=== PATIENT | male | born 1950 | race Caucasian/White ===

== ENCOUNTER 2018-03-19 13:31 | Observation (INO) ==
[2018-03-19] MEDS ORDERED: *HR* Propofol 200 MG/20 ML VIAL IVP ONE (13:35)
[2018-03-19] MEDS ORDERED: *HR* FentaNYL (PF) 100 MCG/2 ML VIAL ONE (13:35)
[2018-03-19] MEDS ORDERED: Lidocaine -MPF 4% 5 ML AMPUL ONE (13:36)
[2018-03-19] MEDS ORDERED: Lidocaine -MPF 2% 2 ML VIAL ONE (13:36)
[2018-03-19] MEDS ORDERED: Dexamethasone 4 MG/ML VIAL ONE (13:36)
[2018-03-19] MEDS ORDERED: Ondansetron 4 MG/2 ML VIAL ONE (13:36)
[2018-03-19] MEDS ORDERED: *HR* Rocuronium Bromide 50 MG/5 ML VIAL ONE (13:36)
[2018-03-19] MEDS ORDERED: *HR* Succinylcholine 200 MG/10 ML VIAL IVP ONE (13:45)
[2018-03-19] MEDS ORDERED: Isovue-300 50 ML VIAL IVP ONE (14:01)
[2018-03-19] MEDS ORDERED: Clindamycin 900 MG/50 ML 900 MG/50 ML IV.SOLN IVPB ONE (14:05)
[2018-03-19] MEDS ORDERED: Ringers Solution, Lactated 1,000 ML IVC SCH (14:15)
--- NOTE | 2018-03-19 14:37 | Event Note ---
Date of Encounter: 03/19/18 Time of Encounter: 14:32 H/P HPI: patient seen in office in January for symptomatic cholelithiasis. He has had no further episodes since that time. 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 Risks and benefits previously discussed with patient and he wishes to proceed npo
--- NOTE | 2018-03-19 14:47 | Anesthesia Evaluation PreOp ---
Date of Encounter: 03/19/18 Time of Encounter: 14:45 - Past History Planned Operation: Lap cholecystectomy Cardiac History: HTN, Hyperlipidemia, Cardiac Surgery (CABG 1993, 2010) Pulmonary History: COPD (Mild) WRISTER History: Denies Any Significant HX Other Medical History: Diabetes Type II Anesthesia History: No Prior Anesthetic Complications, Past Anesthesia Alcohol Use: occasionally Drug use: none Medications and Allergies Aspirin 81 mg PO DAILY 03/19/18 [History] Carvedilol [Carvedilol] 12.5 mg PO BID 03/19/18 [History] Furosemide [Lasix] 20 mg PO DAILY PRN 03/19/18 [History] Insulin Aspart Prot/Insuln Asp [Novolog Mix 70-30 Flexpen Syrn] 170 unit SQ BID 03/19/18 [History] Losartan Potassium [Cozaar] 100 mg PO DAILY 03/19/18 [History] Metformin HCl [Glucophage] 1,000 mg PO QPM 03/19/18 [History] Pravastatin Sodium [Pravachol] 40 mg PO DAILY 03/19/18 [History] 3 Allergy/AdvReac Type Severity Reaction Status Date / Time Penicillins Allergy Itching Verified 03/19/18 13:53 protamine AdvReac Anaphylaxis Verified 03/19/18 13:53 - Meds/Allergy Pre-op Review Medications Reviewed: Yes Allergies Reviewed: Yes Beta Blockers on Current Med List: Yes Anesthesia Results - Imaging Additional studies: 01/2018: Stress test: Gated EF 58% No ischemis. Anesthesia Exam O2 Sat Height 1.83 m Height 1.83 m Height 1.83 m Weight 134.263 kg Weight 134.263 kg Weight 134.263 kg O2 Sat by Pulse Oximetry 97 Vital Signs/O2 Sat/Glucose, Most Recent Temp Pulse Resp BP Pulse Ox 98.1 F 81 18 131/77 97 03/19/18 13:47 03/19/18 13:47 03/19/18 13:47 03/19/18 13:47 03/19/18 13:47 Blood Glucose* 143 NPO (# of Hours): 8 - HEENT Mallampati: II Teeth: Missing Denture Type: Upper: Complete - Cardiac Rhythm: Regular - Pulmonary Breath Sounds: bilateral Clear Anesthesia Assess/Plan ASA Score: 3 Modified Anna Scale for Level of Consciousness: Cooperative, oriented, and tranquil Anesthetic Plan: General Autologous Blood: Yes Monitoring Plan: Standard Monitors Recovery Plan: PACU Anes Supervising Prov Stmt: Patient informed and consented. Risks, benefits, and alternatives discussed. Patient wishes to proceed.
[2018-03-19] MEDS ORDERED: Acetaminophen IV 1,000 MG/100 ML INFUS..BTL ONE (14:49)
[2018-03-19] MEDS ORDERED: EPHEDrine 50 MG/ML VIAL ONE (15:09)
[2018-03-19] MEDS ORDERED: *HR* OxyCODONE Immed Rel 5 MG TABLET PO PRN (15:51)
[2018-03-19] MEDS ORDERED: *HR* HYDROmorphone 2 MG TABLET PO PRN (15:51)
[2018-03-19] MEDS ORDERED: Ondansetron 4 MG/2 ML VIAL IVP PRN (15:51)
[2018-03-19] MEDS ORDERED: MORPHINE SUL Oral CONC 10 MG/0.5 ML ORAL.SYG SL PRN (15:51)
[2018-03-19] MEDS ORDERED: Ketorolac 30 MG/ML VIAL ONE (15:55)
[2018-03-19] MEDS ORDERED: Neostigmine Methylsulfate 3 MG/3 ML SYRINGE ONE (15:57)
--- NOTE | 2018-03-19 16:15 | Operative Note ---
Date of procedure: 03/19/18 Pre-op diagnosis: symptomatic cholelithiasis Post-op diagnosis: same Procedure: Laparoscopic cholecystectomy Complications: none immediate Anesthesia: MARIANELA, local Surgeon: Ivy Rascon Was there an assistant business manager present: Yes Manager Consumer Insights: Jana Guillermo Estimated blood loss (cc): 5 Specimen: gallbladder Condition: stable Disposition: PACU Procedure in Detail: The patient was brought into the operating suite and placed supine on the operating table. Sign-in was performed and everyone was in agreement. Anesthesia was induced and patient was endotracheally intubated by anesthesia without incident and they also placed an OG tube. The abdomen was prepped and draped in the usual sterile fashion. A timeout was performed again everyone was in agreement. A supraumbilical incision was made through the skin into the subcutaneous tissue with an 11 blade. Towel clamps were placed on either side of the umbilicus for retraction. S retractors were used to dissect down to the anterior abdominal wall linea alba fascia. A Veress needle was placed through this incision and a water drop test confirmed placement and the abdomen was insufflated. The abdomen was entered with a 5 mm 0 degree laparoscope on a 5 mm X-donny trocar. The area and entry was visualized was no bleeding and no apparent bowel injury. A 5 mm subxiphoid port was placed under direct visualization after first incising the skin with an 11 blade. A right upper quadrant subcostal position midclavicular line 5 mm port was placed under direct visualization after first incising skin with 11 blade. The laparoscope was placed in this and we exchanged the supraumbilical port for a 12 mm port under direct visualization. The last 5 mm port was placed in the right upper quadrant subcostal position anterior axillary line after first incising the skin with an 11 blade. The patient was placed in steep reverse Trendelenburg left side down position. The dome of the gallbladder was grasped and retracted cephalad. The infundibulum was grasped and retracted laterally. Using the [place] we dissected out the cystic duct and cystic artery. THe cystic artery appeared very short, less than 1 cm. The cystic artery was doubly clipped proximally, once distally and transected with curved scissors. While attempting to place the first hemoclip on the cystic duct it became dislodged off the clip whizzer and during attempted removal from behind the cystic duct there was bile staining seen. Three 5 mm hemoclips were placed distally on the cystic duct one proximally and it was transected with curved scissors. No further bile staining from the area of the common or cystic duct was seen. The gallbladder was removed off the cystic plate with the Bovie. Any bleeding points were stopped with the Bovie. The gallbladder was placed in a laparoscopic Endo Catch bag and removed via the supraumbilical incision site. The inferior edge of the liver was bluntly retracted cephalad and the cystic plate was copiously irrigated with sterile saline. There was no bleeding or apparent bile leak from the cystic plate and the clips on the cystic artery and duct were intact. All irrigation was suctioned free from the abdomen. A 19mm Trent drain was placed through the right lateral port site and placed into the gallbladder fossa. The drain was secured to the skin with a 2-0 silk stitch. All insufflation was suctioned free from the abdomen and the ports removed. The abdominal wall at the supraumbilical incision site was closed with a 0 Vicryl [id number] stitch. 30 mL of 0.5% Marcaine was injected subcutaneously at the 4 port sites. The skin at the three 5 mm port sites were closed with 4-0 Monocryl interrupted subcuticular stitches. The skin at the supraumbilical incision site was closed with a 4-0 Monocryl running subcuticular stitch. Steri -Strips were applied to all wounds. The patient was awoken in the operating suite having tolerated the procedure well and were taken to PACU in stable condition after all lap and ensuring counts were correct at the end of the case.
--- NOTE | 2018-03-19 16:19 | Discharge Summary ---
Outpatient Proc Discharge Plan - Plan Instructions: Laparoscopic Cholecystectomy (DC), Noah-Gonsalves Drain Care (DC) Additional Instructions: No lifting more than 20 pounds for 2 weeks. Okay to take a shower in 24 hours. No tub baths or pools for 1 week. Okay to ride in the car wearing a seatbelt and climb steps. No driving until off narcotics for 24 hours and able to react safely Remove Steri-Strips in 1 week Do not take pain medicine/narcotics on an empty stomach it will likely cause nausea and possibly vomiting. If pain medication is too strong okay to break in half please get lft's drawn in 5 days Prescriptions: OxyCODONE/APAP 5/325 [Percocet 5/325 MG] 1 each PO Q4HR PRN 5 Days #25 tablet PRN Reason: Pain Docusate [Colace] 100 mg PO BID #30 capsule Home Medications: Aspirin 81 mg PO DAILY 03/19/18 [History] Carvedilol 12.5 mg PO BID 03/19/18 [History] Docusate [Colace] 100 mg PO BID #30 capsule 03/19/18 [Rx] Furosemide [Lasix] 20 mg PO DAILY PRN 03/19/18 [History] Insulin Aspart Prot/Insuln Asp [Novolog Mix 70-30 Flexpen Syrn] 170 unit SQ BID 03/19/18 [History] Losartan Potassium [Cozaar] 100 mg PO DAILY 03/19/18 [History] Metformin HCl [Glucophage] 1,000 mg PO QPM 03/19/18 [History] OxyCODONE/APAP 5/325 [Percocet 5/325 MG] 1 each PO Q4HR PRN 5 Days #25 tablet [Rx] Pravastatin Sodium [Pravachol] 40 mg PO DAILY 03/19/18 [History]
[2018-03-19] MEDS ORDERED: *HR* OxyCODONE/APAP 5/325 TABLET PO ONE (16:20)
--- NOTE | 2018-03-19 21:53 | Anesthesia Evaluation Post Op ---
Date of Encounter: 03/19/18 Time of Encounter: 21:52 - Vital Signs Vital Signs: Vital Signs/O2 Sat, Most Current Temp Pulse Resp BP Pulse Ox 97.6 F 80 20 158/87 96 03/19/18 16:50 03/19/18 20:20 03/19/18 20:20 03/19/18 20:20 03/19/18 20:20 - Lungs Lungs: Clear Ascult./Percussion - Airway Airway: Non-obstructed - Cardiovascular Regular Rate - Mental Status Mental Status: Alert & Oriented, Answers Appropriately - Pain Pain Scale: 0 Pain Scale used: Numeric (1 - 10) - Nausea Vomiting Nausea Vomiting: Not Present - Hydration Hydration: Tolerates oral liquids, Has not voided - Discharge PostOp Status: Transfer Patient to floor (Patient to be admitted by Dr. Rascon for urinary retention)
[2018-03-19] MEDS ORDERED: 0.9 % Sodium Chloride 1,000 ML IVC SCH (22:45)
[2018-03-19] MEDS ORDERED: *HR* OxyCODONE/APAP 5/325 TABLET PO PRN (22:48)
[2018-03-20 06:41] VITALS: BP 110/65
== END 2018-03-20 08:50 | disposition home or self-care (01) ==
LOC: SAMDAY 13:31 → 3ANU 13:31
PROVIDERS: ADMIT Surgery; ATTEND Surgery

== ENCOUNTER 2018-05-24 15:21 | Observation (INO) ==
--- NOTE | 2018-05-24 15:39 | Emergency Department Note ---
Disposition Clinical Impression: DVT (deep venous thrombosis) Qualifiers: DVT location: lower extremity Affected thrombotic vein of extremity: femoral Chronicity: acute Laterality: right Qualified Code(s): I82.411 - Acute embolism and thrombosis of right femoral vein Disposition: Admitted As Inpatient Condition: Good General Adult HPI - General Chief complaint: ED Extremity Problem,Nontraumatic Stated complaint: Right foot injury Time Seen by Provider: 05/24/18 15:26 Source: patient, family Mode of arrival: ambulatory Limitations: no limitations Nursing Notes Reviewed: Yes Vital Signs Reviewed: Yes - History of Present Illness HPI Narrative: Patient presents today for evaluation of right lower extremity swelling and pain. Patient states symptoms started several weeks ago when he fell off a chair. Patient was using his stool. Patient came down on his heel. The patient states that he has had intermittent pain and numbness occasionally felt something "crunch". The patient states pain worse with walking. Swelling has now gone from the ankle to the upper calf. Patient describes tightness. Denies fevers or chills. Denies paresthesias. Cap refill and sensation intact. Pain Scale: 3 - Related Data Home Medications Medication Instructions Recorded Confirmed Aspirin 81 mg PO DAILY 03/19/18 05/24/18 Carvedilol 12.5 mg PO BID 03/19/18 05/24/18 Furosemide [Lasix] 20 mg PO DAILY PRN 03/19/18 05/24/18 Insulin Aspart Prot/Insuln Asp 150 - 180 unit SQ BID 03/19/18 05/24/18 [Novolog Mix 70-30 Flexpen Syrn] Losartan Potassium [Cozaar] 100 mg PO DAILY 03/19/18 05/24/18 Metformin HCl [Glucophage] 1,000 mg PO QPM 03/19/18 05/24/18 Pravastatin Sodium [Pravachol] 40 mg PO DAILY 03/19/18 05/24/18 Allergies Allergy/AdvReac Type Severity Reaction Status Date / Time Penicillins Allergy Itching Verified 05/24/18 17:16 protamine AdvReac Anaphylaxis Verified 05/24/18 17:16 Review of Systems: Review of systems positive: Pain to the right heel ankle and calf. Positive swelling to the right lower extremity from the foot to the upper calf. Review systems negative: Constitutional: Fever, chills, weight loss. Cardiovascular: Chest pain or shortness of breath. Respiratory: Shortness of breath. Abdomen: Abdominal pain. Past Medical History - Past Medical History Medical history: Reports: diabetes, hyperlipidemia, hypertension, myocardial infarction Surgical history: Reports: angioplasty/stent, coronary bypass (CABG) Psychiatric history: Reports: no psych history - Social History Smoking Status: Former smoker Smokeless Tobacco Status: No Alcohol use: Reports: occasionally Drug use: Reports: none Physical Exam General appearance: NAD, conversant Eyes: anicteric sclerae, moist conjunctivae; no lid-lag; PERRL HENT: Atraumatic; oropharynx clear with moist mucous membranes Neck: Normal appearance; Trachea midline Chest: Symmetrical chest rise; No respiratory distress Extremities: Right lower extremity with swelling to the foot ankle and lower leg up to the midcalf. Nonpitting edema. Mild ecchymosis around the medial ankle. Sensation and cap refill intact. Dorsalis pedis +2 bilaterally. Right leg with tenderness to palpation over the medial aspect of the ankle as well as the calcaneus. Left leg with no swelling or pain. Skin: Normal temperature, turgor and texture; no rash, ulcers or subcutaneous nodules Psych: Appropriate mood and affect Neuro: Awake and alert Course Course Narrative: 05/24/18 17:00 - Vascular Preliminary by [facility] Num: [id number] : 1950 Patient Age: 68 VENOUS DOPPLER PRELIMINARY REPORT POSITIVE DVT RIGHT LOWER EXTREMITY +FEMORAL VEIN(MID & DIST THIGH) +POP VEIN +PTV VEIN(PROX & MID CALF) +BRENT VEIN(PROX & MID CALF) Initialized on 05/24/18 17:00 - END OF NOTE - Reevaluation(s) Reevaluation #1: DVT positive. Patient with multiple comorbidities. Allergy to protamine. Will check basic labs and likely start on Lovenox. - Consultations Consultation #1: Discussed with hospitalist. Patient accepted for admission. Vital Signs Temperature 97.9 F 05/24/18 15:22 Pulse Rate 80 05/24/18 15:22 Respiratory Rate 20 05/24/18 15:22 Blood Pressure 143/73 05/24/18 15:22 O2 Sat by Pulse Oximetry 95 05/24/18 15:22 Temperature 97.9 F 07/05/18 16:57 Pulse Rate 99 05/24/18 17:35 Respiratory Rate 18 05/24/18 18:54 Blood Pressure 168/76 05/24/18 18:54 O2 Sat by Pulse Oximetry 96 05/24/18 17:35 Oxygen Delivery Oxygen Delivery Room Air Medical Decision Making - Lab Data Result diagrams: 05/24/18 17:03 05/24/18 17:03 Lab Results 05/24/18 05/24/18 05/24/18 Range/Units 17:03 17:03 17:03 WBC 8.2 (4.3-11.1) K/mcL RBC 5.04 (4.19-5.50) M/mcL Hgb 14.1 (12.9-16.9) g/dL Hct 42.6 (37.5-50.1) % MCV 84.5 (83.0-100.0) fL MCH 28.0 (28.0-33.3) pg MCHC 33.1 (31.6-35.5) g/dL RDW 14.1 (11.5-14.5) % Plt Count 105 L (140-400) K/mcL MPV 11.0 (9.4-12.4) fL Immature Gran % 0.2 (0-4) % Seg Neutrophils % 62.8 % Lymphocytes % 25.2 % Monocytes % 9.4 % Eosinophils % 2.2 % Basophils % 0.2 % Neutrophils # 5.1 (1.6-8.9) K/mcL Lymphocytes # 2.1 (0.6-4.6) K/mcL Monocytes # 0.8 (0.0-1.3) K/mcL Eosinophils # 0.2 (0.0-0.6) K/mcL Basophils # 0.0 (0.0-0.2) K/mcL PT 12.1 (9.4-12.1) Seconds INR 1.1 APTT 29.6 (26.0-36.0) Seconds Sodium 139 (136-145) mEq/L Potassium 4.3 (3.5-5.1) mEq/L Chloride 105 (98-107) mEq/L Carbon Dioxide 28 (23-29) mEq/L BUN 10 (8-23) mg/dL Creatinine 0.91 (0.70-1.30) mg/dL Est GFR ( Amer) > 60 (> 60) Est GFR (Non-Af Amer) > 60 (> 60) BUN/Creatinine Ratio 11 (6-26) Glucose 77 (70-105) mg/dL Calculated Osmolality 286 (280-300) Calcium 9.5 (8.6-10.3) mg/dL
[2018-05-24 17:21] LABS: Basophils % 0.2 %; Eosinophils # 0.2 K/mcL (0.0-0.6); Eosinophils % 2.2 %; Hematocrit 42.6 % (37.5-50.1); Hemoglobin 14.1 g/dL (12.9-16.9); Immature Granulocytes % 0.2 % (0-4); Lymphocytes # 2.1 K/mcL (0.6-4.6); Lymphocytes % 25.2 %; Mean Corpuscular HGB Conc 33.1 g/dL (31.6-35.5); Mean Corpuscular Volume 84.5 fL (83.0-100.0); Monocytes # 0.8 K/mcL (0.0-1.3); Monocytes % 9.4 %; Neutrophils # 5.1 K/mcL (1.6-8.9); Platelet Count 105 K/mcL (140-400); Red Blood Count 5.04 M/mcL (4.19-5.50); Red Cell Distribution Width 14.1 % (11.5-14.5); Segmented Neutrophils % 62.8 %
[2018-05-24 17:28] LABS: INR 1.1; Prothrombin Time 12.1 Seconds (9.4-12.1)
[2018-05-24] MEDS ORDERED: Norepinephrine 4 MG in D5% in Water 250 ML IVC SCH (17:30)
[2018-05-24 17:31] LABS: Activated Partial Thrombo Time 29.6 Seconds (26.0-36.0)
[2018-05-24 17:49] LABS: BUN/Creatinine Ratio 11 (6-26); Blood Urea Nitrogen 10 mg/dL (8-23); Calcium 9.5 mg/dL (8.6-10.3); Carbon Dioxide 28 mEq/L (23-29); Chloride 105 mEq/L (98-107); Glucose 77 mg/dL (70-105); Osmolality,Calculated 286 (280-300); Potassium 4.3 mEq/L (3.5-5.1); Sodium 139 mEq/L (136-145); eGFR For African Americans > 60 (> 60); eGFR For Non-African Americans > 60 (> 60)
[2018-05-24] MEDS ORDERED: *HR* Enoxaparin 150 MG/ML SYRINGE SQ STA (17:55)
--- NOTE | 2018-05-24 20:03 | Internal Med History&Physical ---
Date of Encounter: 05/24/18 Time of Encounter: 20:03 Internal Medicine - H&P: HPI Chief complaint: Right leg pain History of present illness: Mr. Wilkins is a 68 year old male with right lower extremity swelling and pain. Patient states symptoms started several weeks ago when he fell off a chair. Doppler U/S was positive for DVT and the patient was admitted for further evaluation. Past Med Surg Social Fam HX - Past Medical History Medical history: diabetes, hyperlipidemia, hypertension, myocardial infarction Additional medical history: CABGX2. [place] X2. HEART CATH. CVD. HTN. HIGH CHOLESTEROL. CHEST PAIN Psychiatric history: no psych history - Past Surgical History Surgical History: angioplasty/stent, coronary bypass (CABG) - Social History Smoking Status: Former smoker Smokeless Tobacco Status: No Alcohol use: occasionally Drug use: none - Family History Father Adopted: [place]: Kamila Wilkins Age: 95 Age at : 95 Cause of : Kidney failure Mother Adopted: [place]: Sruthi Wilkins Age: 52 Age at : 52 Cause of : CHF Hx Family Cardiac Disorders: Yes Hx Family Musculoskeletal Disorders: Yes (Raynauds) Internal Medicine - H&P: Meds Aspirin 81 mg PO DAILY 03/19/18 [History] Carvedilol 12.5 mg PO BID 03/19/18 [History] Furosemide [Lasix] 20 mg PO DAILY PRN 03/19/18 [History] Insulin Aspart Prot/Insuln Asp [Novolog Mix 70-30 Flexpen Syrn] 150 - 180 unit SQ BID 03/19/18 [History] Losartan Potassium [Cozaar] 100 mg PO DAILY 03/19/18 [History] Metformin HCl [Glucophage] 1,000 mg PO QPM 03/19/18 [History] Pravastatin Sodium [Pravachol] 40 mg PO DAILY 03/19/18 [History] 3 Allergy/AdvReac Type Severity Reaction Status Date / Time Penicillins Allergy Itching Verified 05/24/18 17:16 protamine AdvReac Anaphylaxis Verified 05/24/18 17:16 All Systems PM: A 10-system review of systems was performed and is negative for pertinent findings except as documented above in the HPI. - Constitutional Constitutional: no chills, no fever(s), no night sweats - Cardiovascular Cardiovascular ROS IM: no chest pain, no diaphoresis, no dyspnea, no lightheadedness, no palpitations, no syncope - Respiratory Respiratory: no cough, no dyspnea, no wheezing, no excessive phlegm production - Gastrointestinal Gastrointestinal: no abdominal pain, no diarrhea, no hematemesis, no hematochezia, no melena, no nausea, no vomiting - Neurological Neurological ROS: no confusion, no convulsions, no focal weakness, no numbness, no tingling, no tremor(s) - Constitutional Vitals: Temp Pulse Resp BP Pulse Ox 97.9 F 99 18 168/76 96 05/24/18 16:57 05/24/18 17:35 05/24/18 18:54 05/24/18 18:54 05/24/18 17:35 Internal Med - H&P Results - Labs CBC & Chem 7: 05/25/18 01:20 05/25/18 01:20 - Assessment and plan (1) DVT (deep venous thrombosis) Current Visit: Yes Status: Acute Assessment and plan: ASSESSMENT: -Leg pain due to DVT PLAN: - Anticoagulation with Lovenox. Qualifiers: DVT location: lower extremity Affected thrombotic vein of extremity: femoral Chronicity: acute Laterality: right Qualified Code(s): I82.411 - Acute embolism and thrombosis of right femoral vein (2) Hypertension Current Visit: Yes Status: Acute (3) Diabetes mellitus Current Visit: Yes Status: Acute (4) Hyperlipidemia Current Visit: Yes Status: Acute - Time Spent With Patient Total time spent is greater than 50% in coordination of care (as documented) at patient's floor/unit and/or counseling patient:
[2018-05-24] MEDS ORDERED: *HR* HYDROcodone/Acet 5/325 mg TABLET PO PRN (20:38)
[2018-05-24] MEDS ORDERED: Naloxone 0.4 MG/ML INJ IVP PRN ×2 (20:38→20:48)
[2018-05-24] MEDS ORDERED: Acetaminophen 325 MG TABLET PO PRN (20:38)
[2018-05-24] MEDS: Insulin NPH/REG 70/30 100 UNIT/ML (x5UNIT) SQ SCH (22:00)
[2018-05-24] MEDS: *HR* Metformin 500 MG TABLET PO SCH (22:06)
[2018-05-25 01:47] LABS: Hematocrit 41.2 % (37.5-50.1); Immature Platelets 7.8 % (1.1-6.1); Mean Corpuscular Hemoglobin 28.9 pg (28.0-33.3); Mean Corpuscular Volume 85.1 fL (83.0-100.0); Mean Platelet Volume 11.7 fL (9.4-12.4); Red Blood Count 4.84 M/mcL (4.19-5.50); Red Cell Distribution Width 13.7 % (11.5-14.5)
[2018-05-25 01:51] LABS: INR 1.1; Prothrombin Time 12.8 Seconds (9.4-12.1)
[2018-05-25 01:54] LABS: Activated Partial Thrombo Time 36.3 Seconds (26.0-36.0)
[2018-05-25] MEDS ORDERED: D5% in Water 1,000 ML IVC PRN (02:07)
[2018-05-25] MEDS ORDERED: Dextrose Gel 15 GM/37.5 ML TUBE PO PRN ×2 (02:07)
[2018-05-25] MEDS ORDERED: *HR* Dextrose 50 % in Water (Syg) 50 ML SYRINGE IVP PRN (02:07)
[2018-05-25 02:09] LABS: Alanine Aminotransferase 13 Units/L (7-52); Albumin 3.7 g/dL (3.5-5.7); Albumin/Globulin Ratio 1.4 (1.1-2.2); Alkaline Phosphatase 68 Units/L (34-104); Aspartate Amino Transferase 14 Units/L (13-39); BUN/Creatinine Ratio 14 (6-26); Bilirubin,Total 0.8 mg/dL (0.3-1.0); Blood Urea Nitrogen 12 mg/dL (8-23); Calcium 8.8 mg/dL (8.6-10.3); Carbon Dioxide 25 mEq/L (23-29); Chloride 107 mEq/L (98-107); Chol/HDL Ratio 4.1 (0-4.9); Cholesterol 140 mg/dL (< 200); Globulin 2.6 g/dL (2.4-3.5); Glucose 153 mg/dL (70-105); HDL Cholesterol 34 mg/dL (40-59); LDL Cholesterol,Calculated 36 mg/dL (0-99); Osmolality,Calculated 291 (280-300); Phosphorous 2.9 mg/dL (2.7-4.5); Potassium 3.8 mEq/L (3.5-5.1); Sodium 139 mEq/L (136-145); Total Protein 6.3 g/dL (6.4-8.9); Triglycerides 350 mg/dL (< 150); eGFR For African Americans > 60 (> 60); eGFR For Non-African Americans > 60 (> 60)
[2018-05-25] MEDS: Insulin LISPRO 300 UNITS/3 ML VIAL SQ SCH ×3 (08:17→16:58)
[2018-05-25] MEDS: Insulin NPH/REG 70/30 100 UNIT/ML (x5UNIT) SQ SCH ×3 (08:22→17:00)
[2018-05-25] MEDS: Aspirin 81 MG TAB.CHEW PO SCH (08:23)
[2018-05-25] MEDS: *HR* Enoxaparin 150 MG/ML SYRINGE SQ SCH ×2 (10:27→17:00)
[2018-05-25] MEDS ORDERED: Insulin NPH/REG 70/30 100 UNIT/ML (x5UNIT) SQ SCH (17:00)
[2018-05-25] MEDS ORDERED: Insulin LISPRO 300 UNITS/3 ML VIAL SQ SCH (21:00)
[2018-05-25] MEDS: *HR* Metformin 500 MG TABLET PO SCH (21:23)
[2018-05-26] MEDS: *HR* Enoxaparin 150 MG/ML SYRINGE SQ SCH (05:59)
[2018-05-26] MEDS: Insulin LISPRO 300 UNITS/3 ML VIAL SQ SCH (09:34)
[2018-05-26] MEDS: Aspirin 81 MG TAB.CHEW PO SCH (09:40)
[2018-05-26] MEDS: Insulin NPH/REG 70/30 100 UNIT/ML (x5UNIT) SQ SCH ×2 (09:41)
--- NOTE | 2018-05-26 10:13 | Internal Med Progress Note ---
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 Diabetes mellitus complication status: without complication Qualified Code(s): E11.9 - Type 2 diabetes mellitus without complications; Z79.4 - care home (current) use of insulin (3) Hypertension Status: Chronic Qualifiers: Hypertension type: essential hypertension Qualified Code(s): I10 - Essential (primary) hypertension (4) Hyperlipidemia Status: Chronic Qualifiers: Hyperlipidemia type: unspecified Qualified Code(s): E78.5 - Hyperlipidemia , unspecified - Time Spent With Patient Total time spent is greater than 50% in coordination of care (as documented) at patient's floor/unit and/or counseling patient: 25 - 35 minutes - Subjective Interval history: .. The patient feels better. The pain in his right leg subsided. He has decreased swelling in that extremitymoderate. Denies difficulty breathing, coughing and wheezing. Denies abdominal pain, nausea and vomiting. He has normal urination. OBJECTIVE: .. Skin: Free of rash and discoloration. ENMT: Oral/pharyngeal mucosa is normal in appearance. Eyes: Sclera is white. There is no discharge from eyes. Respiratory: Normal breath sounds; no crackles or wheezes. CV: Heart is regular; no gallop or murmur. GI: Abdomen is soft and not tender. There is no palpable mass or visceromegaly. Neuro: There is no focal deficits. ASSESSMENT AND PLAN: .. DVT of her right leg. We will continue subcutaneous Lovenox at therapeutic dose. Will talk to manager of case management about switching him to Eliquis or similar. Type 2 diabetes mellitus. Seems to be under control. See his fingersticks. Hypertension. Will continue Coreg and Cozaar. Hyperlipidemia. He is on low-fat diet and Lipitor. Disposition: I anticipate his discharge tomorrow. - Constitutional Vitals: Temp Pulse Resp BP Pulse Ox 97.5 F L 82 14 152/86 98 05/26/18 06:44 05/26/18 06:44 07/07/18 06:44 05/26/18 06:44 05/26/18 06:44 Internal Medicine: Result - Labs CBC & Chem 7: 05/25/18 01:20 05/25/18 01:20 - ABG Interpretation ABG results: PT/INR, D-dimer PT 12.8 Seconds (9.4-12.1) H 05/25/18 01:20 Consult Discharge Plan - Plan Instructions: Hydrocodone/Acetaminophen (By mouth), Deep Venous Thrombosis (DC) Referrals: Jair Douglas MD [Partnered Physician] - 06/01/18 10:00 am Prescriptions: HYDROcodone/Acet 5/325 mg [[place]af[place] 5-325 mg] 1 tab PO Q6HR PRN 4 Days #12 tablet PRN Reason: Moderate Pain
[2018-05-26 10:16] VITALS: BP 126/72
--- NOTE | 2018-05-26 10:20 | Discharge Summary ---
- NOTES TO OUTPATIENT PROVIDER Notes to Outpatient Provider: The patient needs to be anticoagulated for 3 months. He got a trial sample of Eliquis for 1 month. Orders not resulted at time of discharge: Pending orders 05/24/18 20:38 Urinalysis reflex Microscopic [URIN] Routine Date of Encounter: 05/26/18 Time of Encounter: 10:18 - Discharge Diagnosis (1) DVT (deep venous thrombosis) Priority: Primary Status: Acute Qualifiers: DVT location: lower extremity Affected thrombotic vein of extremity: femoral Chronicity: acute Laterality: right Qualified Code(s): I82.411 - Acute embolism and thrombosis of right femoral vein (2) Type 2 diabetes mellitus Priority: Secondary Status: Chronic Qualifiers: Diabetes mellitus snf insulin use: with snf use Diabetes mellitus complication status: without complication Qualified Code(s): E11.9 - Type 2 diabetes mellitus without complications; Z79.4 - buttermaker (current) use of insulin (3) Hypertension Priority: Secondary Status: Chronic Qualifiers: Hypertension type: essential hypertension Qualified Code(s): I10 - Essential (primary) hypertension (4) Hyperlipidemia Priority: Secondary Status: Chronic Qualifiers: Hyperlipidemia type: unspecified Qualified Code(s): E78.5 - Hyperlipidemia , unspecified Hospital course: Mr. Wilkins is a 68 year old male. The patient was admitted with right leg pain/swelling. It was developing in the last several weeks preceding this admission; started after a fall off a chair. He sustained injury to his lower back/buttocks. It forced him to reduce his activities. He did not complain of any difficulty breathing, coughing or wheezing at the time of admission or later. We started him on therapeutic dose of subcutaneous Lovenox. The pain in his right leg subsided by the time of discharge. It was associated with decreased swelling of the extremity. It remains moderate. I am discharging him home. We gave him prescription/coupon for 1 month of Eliquis. He needs to continue this medication (or similar) for 3 months. Discharge discussed with: patient, nurse, case management - Time Spent with Patient Total time spent providing and/or coordinating discharge services: Greater than 30 minutes (35 minutes) - Discharge Medications Prescriptions: HYDROcodone/Acet 5/325 mg [[place] 5-325 mg] 1 tab PO Q6HR PRN 4 Days #12 tablet PRN Reason: Moderate Pain Home Medications: Aspirin 81 mg PO DAILY 03/19/18 [History] Carvedilol 12.5 mg PO BID 03/19/18 [History] Furosemide [Lasix] 20 mg PO DAILY PRN 03/19/18 [History] Insulin Aspart Prot/Insuln Asp [Novolog Mix 70-30 Flexpen Syrn] 150 - 180 unit SQ BID 03/19/18 [History] Losartan Potassium [Cozaar] 100 mg PO DAILY 03/19/18 [History] Metformin HCl [Glucophage] 1,000 mg PO QPM 03/19/18 [History] Pravastatin Sodium [Pravachol] 40 mg PO DAILY 03/19/18 [History] Acetaminophen [Tylenol] 650 mg PO Q6HR PRN tablet 05/26/18 [Rx] HYDROcodone/Acet 5/325 mg [Red[place]st 5-325 mg] 1 tab PO Q6HR PRN 4 Days #12 tablet 05/26/18 [Rx] Insulin NPH/REG 70/30 (HUMAN) [Humulin 70/30 Vial] 75 unit SQ BID@0800,1700 [id number] 05/26/18 [Rx] metFORMIN [Glucophage] 1,000 mg PO HS tablet 05/26/18 [Rx] Allergies/Adverse Reactions: 3 Allergy/AdvReac Type Severity Reaction Status Date / Time Penicillins Allergy Itching Verified 05/24/18 17:16 protamine AdvReac Anaphylaxis Verified 05/24/18 17:16 Date of admission: 05/24/18 18:14 Primary care physician: PCP NONE Discharging clinician: James Peters Anticipated date of discharge: 05/26/18 - Constitutional Vitals: Temp Pulse Resp BP Pulse Ox 98.2 F 78 16 126/72 98 05/26/18 10:15 05/26/18 10:15 05/26/18 10:15 05/26/18 10:15 05/26/18 10:15 - Patient Status Disposition: Home, Self-Care Condition: Good - Discharge Instructions Instructions: Hydrocodone/Acetaminophen (By mouth), Deep Venous Thrombosis (DC) Follow Up With: Jair Douglas MD [Partnered Physician] - 06/01/18 10:00 am
== END 2018-05-26 12:17 | disposition home or self-care (01) ==
LOC: 3ANU 15:21 → EMEROO 15:21 → SUATTDRO 18:14 → 3ANU 19:00
PROVIDERS: ADMIT Internal Medicine Nephrology; ATTEND Internal Medicine